=== PATIENT | female | born 1970 | race Caucasian/White ===

== ENCOUNTER 2025-01-11 10:30 | Outpatient (RCR) | payer MEDICAID, SELFPAY ==
--- NOTE | 2024-12-19 14:02 | HP.PTEVAL ---
Patient's Visit Information Visit Information Visit Information: MELISSA VANN is a 53 year old F referred to Physical Therapy by SANTO Durand with a diagnosis of LUMBAR SPONDYLOSIS ,MID BACK PAIN. Date of Evaluation: 12/19/24 Physical Therapist: Gorge Pepper, PT, Cert MDT, OCS Visit Plan Frequency: 2x /Week Duration: 4 Weeks Plan: LEFT SHOULDER PAIN + RTC PRECAUTION: OSTEOPOROSIS PT INTERVENTIONS DLS ,POSTURAL EX'S ,FUNCTIONAL STRENGTHENING ,LE FLEXABILITY ,ACTIVITY MODIFICATION AND MODALITIES Subjective Subjective: This 53 y/o female presents to physical therapy with mid back pain and lumbar pain. Patient had has back pain ~ 5 years. Patient has seen Dr pain management tried radiofrequency aplasia and prior trigger point injection. Patient has x-rays showed DDD and scoliosis (dextroscoliosis, multiple osteophytes and degenerative changes). Plan to do have aplasia mid back. Prescribed zanaflex . Patient symptoms aggravating lifting ,bending ,standing ,driving affects ADLS and houseworks. Alleviating factors injections ,heat and rest. Patient c/o paresthesia/tingling in back . Coughing/sneezing -. Bowel/bladder -.Patient has left shoulder pain has pain with weakness. Patient able to sleep except shoulder pain. Patient condition affects QOL function and housework tasks. Patient goal to decrease pain. PRECAUTION: osteoporosis SOCIAL: single VOCATION: disability Pain Bilateral Back: Pain Intensity (Out of 10): 3 Pain Intensity Range: 10 Left Shoulder: Pain Intensity (Out of 10): 6 Pain Intensity Range: 10 Objective Objective: POSTURE: mod thoracic kyphosis and asymmetries pelvis ,right leg longer with scoliosis right GAIT: reciprocal pattern PALPATION: Erector spinalis NEURO: denies paresthesia/tingling ,reflexes L3-4 ,L4-5 L5-S1 1/3 FLEXABILITY:hamstrings min tight LUMBAR ROM: flexion mod loss ,extension mod loss ,side glides mod loss THORACIC ROM: flexion mod loss ,extension severe loss ,rotation mod loss MMT: quads/hams/ 4/5 ,hip flexion 4-/5 ,ankle 4/5 + signs with possible RTC Special Tests L/S Slump test left side: Negative L/S Slump test right side: Negative L/S Left Straight Leg Raise: Negative L/S Right Straight Leg Raise: Negative Balance/Special Test Scores Oswestry Low Back Score: 28 Goals Goal 1:: Patient to be I with HEP Goal Time Frame: 4-6 Weeks Goal 2:: Patient to be improve lumbar ROM for function of recovery to put on shoes Goal Time Frame: 4-6 Weeks Goal 3:: Patient to demonstrate by 40% improvement with less pain with gait and standing Goal Time Frame: 4-6 Weeks Goal 4:: Patient to improve back oswestry score by 5 points to improve QOL and function Goal Time Frame: 4-6 Weeks Rehabilitation Potential Physical Therapy Diagnosis: This patient has thoracic pain with scoliosis and h/o osteoporosis with pain with position and motion testing worse with walking/standing thus benefit from skilled PT( Patient has left shoulder pain plan top see DR + signs RTC) Rehabilitation Potential: Fair Anticipated Interventions Patient/Client Instruction: Educate patient on: Condition and Plan of Care For the Purpose of:: To decrease pain, To increase ROM, To improve ability to perform ADL's, To increase tolerance to activity/condition/position, To improve ability of physical actions for home/community/work/leisure, To improve health of tissue, To decrease soft tissue restriction, To increase flexibility/ROM and To improve tolerance to ADL's Therapeutic Exercise to Include: Strength training, Endurance training, Balance training, Postural training, Flexibilty training and Dynamic Lumbar Stabilization For the Purpose of:: To decrease pain, To improve nutrient delivery to tissue, To improve muscle performance and motor function, To improve ability to perform ADL's, To increase tolerance to activity/condition/position, To improve ability of physical actions for home/community/work/leisure, To improve health of tissue, To decrease soft tissue restriction, To increase flexibility/ROM and To improve tolerance to ADL's TENS: Yes IF ES: Yes Cryotherapy (ice pack, ice massage): Yes Thermo therapy (hot pack): Yes Ultrasound (thermal/non thermal): Yes For the Purpose of:: To decrease pain, To increase ROM, To improve muscle performance and motor function, To improve ability to perform ADL's, To increase tolerance to activity/condition/position, To improve ability of physical actions for home/community/work/leisure, To improve health of tissue, To decrease soft tissue restriction, To increase flexibility/ROM, To reduce risk of recurrence and To improve tolerance to ADL's Text: Thank you for the opportunity to evaluate your patient. For Medicare and Medicare HMO plans, please review the plan of care and approve it. It will need to be FAXED BACK to us at [phone] for Medicare purposes. For Medicare only, by signing this I certify the plan of care. Please let me know if there are questions or concerns regarding this plan of care. Physician Signature: Date:
--- NOTE | 2025-04-25 08:57 | HP.PT.NRP ---
Patient Information Patient Information: MELISSA VANN was seen in my office for initial evaluation on 12/19/24. The following Plan of Care was established for this patient: POC Established Initial Frequency: 2x /Week Initial Duration: 4 Weeks Anticipated Interventions Patient/Client Instruction: Educate patient on: Condition and Plan of Care For the Purpose of:: To decrease pain, To increase ROM, To improve ability to perform ADL's, To increase tolerance to activity/condition/position, To improve ability of physical actions for home/community/work/leisure, To improve health of tissue, To decrease soft tissue restriction, To increase flexibility/ROM and To improve tolerance to ADL's Therapeutic Exercise to Include: Strength training, Endurance training, Balance training, Postural training, Flexibilty training and Dynamic Lumbar Stabilization For the Purpose of:: To decrease pain, To improve nutrient delivery to tissue, To improve muscle performance and motor function, To improve ability to perform ADL's, To increase tolerance to activity/condition/position, To improve ability of physical actions for home/community/work/leisure, To improve health of tissue, To decrease soft tissue restriction, To increase flexibility/ROM and To improve tolerance to ADL's TENS: Yes IF ES: Yes Cryotherapy (ice pack, ice massage): Yes Thermo therapy (hot pack): Yes Ultrasound (thermal/non thermal): Yes For the Purpose of:: To decrease pain, To increase ROM, To improve muscle performance and motor function, To improve ability to perform ADL's, To increase tolerance to activity/condition/position, To improve ability of physical actions for home/community/work/leisure, To improve health of tissue, To decrease soft tissue restriction, To increase flexibility/ROM, To reduce risk of recurrence and To improve tolerance to ADL's Last Seen Last Seen: This patient was last seen in our office . Pertinent comments regarding their Physical therapy will appear below: Patient seen for PT for back pain and d/c to HEP At this point I will be discontinuing this patient from physical therapy. I would be happy to see this patient again in the future if found appropriate by the physician. Thank you! Gorge Pepper, PT, Cert MDT, OCS Balance/Gait/Functional tests Balance/Special Test Scores Oswestry Low Back Score: 28
== END 2025-01-11 19:00 | disposition home or self-care (01) ==
LOC: PT 10:30
PROVIDERS: Referring Provider Nurse Practitioner Family; Visit Provider Nurse Practitioner Family
DX: M47.814 Spondylosis without myelopathy or radiculopathy, thoracic region (principal)
CPT/HCPCS: 97110; 97162